=== PATIENT | male | born 1985 | race Caucasian/White ===

== ENCOUNTER → 2017-09-06 09:22 | Outpatient (CLI) | payer OTHER, SELFPAY ==
[2017-09-06 11:53] LABS: Absolute Lymphocyte Count 2.88 X10^3/ul (0.83-4.51); Absolute Neutrophil Count 3.1 X10^3/uL (2.0-7.7); Basophil# 0.03 X10^3/uL; Basophil% 0.4 % (0-1); Eosinophil# 0.21 X10^3/uL; Eosinophils% 3.1 % (0-5); Hematocrit 44.5 % (40-54); Hemoglobin 15.2 g/dl (13.0-16.5); Lymphocyte # 2.88 X10^3/ul (4.0); Lymphocyte % 41.9 % (19-41); Mean Corp Hgb Conc 34.2 g/gl (32-36); Mean Corpuscular Hgb 27.1 pg (27.0-32.0); Mean Corpuscular Volume 79.5 fL (80-94); Mean Platelet Vol. 10.5 fl (6.2-12.0); Monocyte# 0.63 X10^3/uL; Monocyte% 9.2 % (0-10); Neutrophil % 45.1 % (47-70); Platelet Count 208 K/mm3 (150-450); RBC Distribution Width CV 12.9 % (11.6-14.6); RBC Distribution Width SD 36.8 fl (35.1-43.9); White Blood Count 6.9 K/mm3 (4.4-11.0)
[2017-09-06 11:57] LABS: POSITIVE COUNT NO; POSITIVE DIFFERENTIAL NO; POSITIVE MORPHOLOGY NO
[2017-09-06 12:14] LABS: AST(SGOT) 21 U/L (15-37); Alanine Aminotransfer ALT/SGPT 44 U/L (16-61); Albumin, Serum 3.9 g/dL (3.2-5.0); Alkaline Phosphatase 63 U/L (45-117); Anion Gap 7 (5-15); BUN 21 mg/dL (7-18); BUN/Creat Ratio 21.1 RATIO (10-20); Calcium,Total 8.9 mg/dL (8.5-10.1); Chloride 104 mmol/L (98-107); EST Glomerular Filtration Rate 93 mL/min (>60); Est Glom Filt Rate - Afr Amer 112 mL/min (>60); Glucose 90 mg/dL (74-106); Potassium 3.9 mmol/L (3.5-5.1); Protein, Total 7.9 g/dL (6.4-8.2); Sodium Level 140 mmol/L (136-145)
== END ==
PROVIDERS: Family Provider Nurse Practitioner Primary Care; PCP Nurse Practitioner Primary Care; Visit Provider Dermatology Pediatric Dermatology
DX: L40.0 Psoriasis vulgaris (principal); Z79.899 Other long term (current) drug therapy; D48.5 Neoplasm of uncertain behavior of skin
CPT/HCPCS: 36415; 80053; 85025

== ENCOUNTER → 2018-02-07 09:46 | Outpatient (CLI) | payer OTHER, SELFPAY ==
[2018-02-07 12:37] LABS: Absolute Lymphocyte Count 3.04 X10^3/ul (0.83-4.51); Basophil# 0.04 X10^3/uL; Basophil% 0.6 % (0-1); Eosinophils% 2.8 % (0-5); Hematocrit 43.7 % (40-54); Hemoglobin 15.3 g/dl (13.0-16.5); Lymphocyte # 3.04 X10^3/ul (4.0); Lymphocyte % 42.6 % (19-41); Mean Corpuscular Hgb 27.8 pg (27.0-32.0); Mean Corpuscular Volume 79.3 fL (80-94); Mean Platelet Vol. 11.2 fl (6.2-12.0); Monocyte% 11.2 % (0-10); Neutrophil # 3.02 X10^3/uL (2.7-7.7); Neutrophil % 42.4 % (47-70); POSITIVE COUNT NO; POSITIVE DIFFERENTIAL NO; POSITIVE MORPHOLOGY NO; Platelet Count 243 K/mm3 (150-450); RBC Distribution Width CV 13.1 % (11.6-14.6); RBC Distribution Width SD 37.6 fl (35.1-43.9); Red Blood Count 5.51 M/mm3 (4.6-6.2); White Blood Count 7.1 K/mm3 (4.4-11.0)
[2018-02-07 12:47] LABS: BUN 21 mg/dL (7-18); Creatinine, Serum 1.23 mg/dL (0.70-1.30); EST Glomerular Filtration Rate 72 mL/min (>60); Glucose 90 mg/dL (74-106)
[2018-02-07 12:48] LABS: Anion Gap 8 (5-15); BUN/Creat Ratio 17.1 RATIO (10-20); Chloride 104 mmol/L (98-107); Est Glom Filt Rate - Afr Amer 87 mL/min (>60); Sodium Level 141 mmol/L (136-145)
[2018-02-14 20:07] LABS: QNTFERON TB Ag Minus Nil Value < 0 IU/mL (.); QNTFERON TB Ag Value 0.02 IU/mL (.); QNTFERON TB Mitogen Value > 10.00 IU/mL (.); QNTFERON TB Nil Value 0.05 IU/mL (.)
[2018-02-15 11:57] LABS: QNTIFERON TB Gold Negative (Negative)
== END ==
PROVIDERS: Family Provider Nurse Practitioner Primary Care; PCP Nurse Practitioner Primary Care; Visit Provider Dermatology Pediatric Dermatology
DX: L40.0 Psoriasis vulgaris (principal)
CPT/HCPCS: 36415; 80048; 85025; 86480

== ENCOUNTER → 2018-10-03 10:16 | Outpatient (CLI) | payer OTHER, SELFPAY ==
[2018-10-03 12:15] LABS: Absolute Neutrophil Count 4.1 X10^3/uL (2.0-7.7); Basophil# 0.04 X10^3/uL; Basophil% 0.5 % (0-1); Eosinophil# 0.39 X10^3/uL; Eosinophils% 5.3 % (0-5); Hematocrit 41.8 % (40-54); Hemoglobin 14.5 g/dl (13.0-16.5); Lymphocyte % 31.4 % (19-41); Mean Corp Hgb Conc 34.7 g/gl (32-36); Mean Corpuscular Hgb 27.6 pg (27.0-32.0); Mean Corpuscular Volume 79.5 fL (80-94); Monocyte% 6.8 % (0-10); Neutrophil # 4.06 X10^3/uL (2.7-7.7); Neutrophil % 55.5 % (47-70); Platelet Count 219 K/mm3 (150-450); RBC Distribution Width CV 13.7 % (11.6-14.6); RBC Distribution Width SD 38.7 fl (35.1-43.9); Red Blood Count 5.26 M/mm3 (4.6-6.2); White Blood Count 7.3 K/mm3 (4.4-11.0)
[2018-10-03 12:19] LABS: POSITIVE COUNT NO; POSITIVE DIFFERENTIAL NO; POSITIVE MORPHOLOGY NO
[2018-10-03 12:29] LABS: AST(SGOT) 22 U/L (15-37); Alanine Aminotransfer ALT/SGPT 47 U/L (16-61); Albumin, Serum 3.9 g/dL (3.2-5.0); Alkaline Phosphatase 54 U/L (45-117); Anion Gap 8 (5-15); BUN 14 mg/dL (7-18); BUN/Creat Ratio 14.4 RATIO (10-20); Calcium,Total 9.2 mg/dL (8.5-10.1); Chloride 104 mmol/L (98-107); Creatinine, Serum 0.97 mg/dL (0.70-1.30); EST Glomerular Filtration Rate 95 mL/min (>60); Est Glom Filt Rate - Afr Amer 115 mL/min (>60); Globulin 4.1 g/dL (2.2-4.2); Glucose 122 mg/dL (74-106); Potassium 3.8 mmol/L (3.5-5.1); Sodium Level 139 mmol/L (136-145)
== END ==
PROVIDERS: Family Provider Nurse Practitioner Primary Care; PCP Nurse Practitioner Primary Care; Referring Provider Physician Assistant; Visit Provider Physician Assistant
DX: L40.0 Psoriasis vulgaris (principal); Z79.899 Other long term (current) drug therapy
CPT/HCPCS: 36415; 80053; 85025

== ENCOUNTER → 2020-04-22 14:36 | Outpatient (CLI) | payer OTHER, SELFPAY ==
[2020-04-25 03:06] LABS: QNTFERON TB Mitogen Value > 10.00 IU/mL (.); QNTFERON TB Nil Value 0.01 IU/mL (.); QNTFERON TB1+ Ag Value 0.01 IU/mL (.); QNTFERON TB2+ Ag Value 0.01 IU/mL (.)
[2020-04-25 09:48] LABS: QNTIFERON TB Positive Criteria Negative (Negative)
== END ==
PROVIDERS: PCP Nurse Practitioner Primary Care; Referring Provider Physician Assistant Medical; Visit Provider Physician Assistant Medical
DX: L40.0 Psoriasis vulgaris (principal); Z79.899 Other long term (current) drug therapy; L85.8 Other specified epidermal thickening; D22.5 Melanocytic nevi of trunk; D22.62 Melanocytic nevi of left upper limb, including shoulder; D22.61 Melanocytic nevi of right upper limb, including shoulder
CPT/HCPCS: 36415; 86480